=== PATIENT | female | born 1960 | race Caucasian/White ===

== ENCOUNTER 2021-06-30 08:51 | Observation (INO) ==
--- NOTE | 2021-06-30 09:09 | Emergency Department Note ---
Impression & Plan Elevated troponin, Fall, Hyponatremia, Hypokalemia, Thoracic compression fracture ED Provider Note NAME: LUCÍA WASSERMAN AGE: 61 SEX: F : 1960 ARRIVES VIA: Walk-In INFORMANT: Patient, ED PROVIDER(S): Vadim Nieves MD Chief Complaint: Shortness of breath, back pain HPI: Patient does present with above symptoms and states that this began last evening. The patient describes that she had some shortness of breath with back pain that is localized between the shoulder blades. The patient states that th is feels very similar to the time that she had pneumonia 10 years ago and relates this occurred around the time just returned and was fired. Patient denies any fevers or chills. The patient states that it is somewhat positional and worse with breathing. Patient denies any recent trauma or falls. Patient did take some aspirin but without significant relief. Patient denies alcohol tobacco or drug use. Patient is vaccinated for COVID-19 but has not received a seasonal flu shot. Patient denies any cough or abdominal pain. Patient does not have any anterior chest pain. Patient denies any lower extremity swelling, history of DVT or PE, no recent surgeries or procedures or hospitalizations. Patient denies any recent travel or known sick contacts. ROS: See HPI for pertinent positives and negatives. A total of 10 systems were reviewed and otherwise negative. Past medical history: See below Surgical history: See below Social history: See below Physical Exam: GENERAL: Mildly ill in appearance, wearing glasses, wearing a mask, non-toxic. EYE EXAM: Normal conjunctiva. PERRL, no anisocoria and EOM's grossly intact w/o pain. Head: Small contusion to right forehead. NECK: Supple, no nuchal rigidity, no adenopathy, non-tender. No signs of meningismus. LUNGS: Clear to auscultation. Normal chest wall mechanics. HEART: NSR, no MRG. ABDOMEN: Abdomen soft, non-tender, normo-active bowel sounds, no masses, no rebound or guarding. BACK: No CVA TTP. No reproducible upper back pain SKIN: No rashes and no bruising. UPPER EXTREMITIES: Upper extremities are grossly normal. LOWER EXTREMITIES: Grossly normal, no edema. NEURO EXAM: A&O x3, cranial nerves II-XII grossly intact, normal speech, moves all 4 extremities on command w/o issue. No sensory deficits. Differential diagnoses: Reactive airway disease, pneumonia, pneumothorax, COPD, CHF, infections, cardiac ischemia, pulmonary embolism, musculoskeletal, gastrointestinal, as well as other pathologies. Course: Patient was seen and evaluated the bedside. Full history physical exam was performed. EKG interpreted by me Normal sinus rhythm, rate of 76, normal intervals, normal axis, T WI in lead III not in contiguous leads. Trace depression in the lateral leads but not high lateral leads. T wave inversion and slight depression does appear old from comparison EKG November 25, 2009. Imaging Studies: See Below Cardiac monitoring: An order was placed for continuous cardiac monitoring. The monitor shows a rate of 82 with sinus rhythm. MDM: Patient did present due to concern for upper back pain. Blood work was obtained along with a CT angiography of the chest. Patient's blood work showed hyponatremia. I did receive a call the patient's positive troponin. Patient's EKG does show T wave inversion in lead III but not in contiguous leads. Patient does not have any obvious ST elevations. Patient may have very mild depressions in the lateral leads. Patient's EKG does not appear grossly changed from EKG completed in 2009. Patient CT angiography shows a concern for compression fractures. I had asked the patient initially if she had had any recent falls but denied this. I did discuss with the patient that she seemed to have a small contusion to the right forehead but she thought that this was a pimple. CT of the head and cervical spine were ordered to rule out additional possible trauma. These were negative. I did speak the on-call hospitalist Lorrie Case PA-C and the patient was admitted to by Dr. Noriega. Past Med/Surg History Medical History (Updated 06/30/21 @ 14:38 by Vadim Nieves MD) Essential hypertension Hyperlipidemia Psoriasis Psoriatic arthritis Surgical History (Updated 06/30/21 @ 13:12 by Chelsea Case PA-C) History of benign breast biopsy History of cervical biopsy Cervical conization in 1982 for dysplasia - normal pap smears since History of tonsillectomy Social History Smoking Status: Never smoker Feels Safe at Home: Yes Allergies Allergies Allergy/AdvReac Type Severity Reaction Status Date / Time doxycycline Allergy Intermediate Rash Unverified 06/30/21 11:00 Home Meds Home Medications Medication Instructions Recorded Confirmed apremilast 30 mg tablet (Otezla) 30 mg PO BID 06/30/21 06/30/21 atorvastatin 10 mg tablet 10 mg PO QAM 06/30/21 06/30/21 hydrochlorothiazide 25 mg tablet 25 mg PO QAM 06/30/21 06/30/21 lisinopril 30 mg tablet 30 mg PO QAM 06/30/21 06/30/21 propranolol 40 mg tablet 20 mg PO BID PRN 06/30/21 06/30/21 Results & Data (ED) Vital Signs Vital Signs - 24 hr 06/30/21 08:55 06/30/21 09:40 Temperature 36.5 C Temperature Source Temporal Artery Scan Pulse Rate 90 74 Pulse Rate [Apical] 68 Pulse Rhythm Regular Pulse Rhythm [Apical] Regular Pulse Strength [Apical] Normal Respiratory Rate 20 20 Respiratory Effort / Characteristics Non-Labored Non-Labored Spontaneous Respiratory Depth Normal Normal Respiratory Pattern Regular Regular Blood Pressure 165/86 H Blood Pressure [Right Arm] 142/85 H Blood Pressure Mean 112 Blood Pressure Mean [Right Arm] 104 Blood Pressure Position Sitting Blood Pressure Position [Right Arm] Semi-fowlers Pulse Oximetry 99 98 Oxygen Delivery Method Room Air Room Air Sepsis Recent Fever Within 48 Hours No Sepsis New/Unexplained Change in Mental Status No Sepsis Action Taken by Nursing No Action Required Home Medications Current Medication List: was personally reviewed by me Laboratory Data Attestation: I reviewed the patient's lab results. Result diagrams: 06/30/21 09:39 06/30/21 09:39 Lab Results 06/30/21 06/30/21 06/30/21 Range/Units 09:21 09:25 09:39 WBC 7.04 (4.8-10.8) K/uL RBC 4.40 (4.2-5.4) M/uL Hgb 14.8 (12.0-16.0) g/dL POC Hgb (12.0-16.0) g/dl Hct 41.1 (37-47) % POC Hct (37-47) % MCV 93.4 (80-100) fL MCH 33.6 (25-34) pg MCHC 36.0 (32-36) g/dL RDW Std Deviation 44.7 (36.4-46.3) fL RDW Coeff of Bernie 13.0 (11.5-14.5) % Plt Count 220 (130-400) K/uL MPV 8.7 (7.4-10.4) fL Immature Gran % (Auto) 0.1 % Neut % (Auto) 85.4 % Lymph % (Auto) 4.8 % Har[place] % (Auto) 9.5 % Eos % (Auto) 0.1 % Baso % (Auto) 0.1 % Neut # (Auto) 6.00 (1.4-6.5) K/uL Lymph # (Auto) 0.34 L (1.2-3.4) K/uL Har[place] # (Auto) 0.67 H (0.11-0.59) K/uL Eos # (Auto) 0.01 (0-0.5) K/uL Baso # (Auto) 0.01 (0-0.2) K/uL Immature Gran # (Auto) 0.01 (0.00-0.02) K/uL POC Sodium (135-144) mmol/L Sodium (136-145) mmol/L POC Potassium (3.3-5.0) mmol/L Potassium (3.5-5.1) mmol/L POC Chloride (101-112) mmol/L Chloride (98-107) mmol/L Carbon Dioxide (21-32) mmol/L POC Total CO2 (24-31) mmol/L Anion Gap (3-11) POC Anion Gap (16-25) mmol/L POC BUN (7-18) mg/dl BUN (7-18) mg/dl Creatinine (0.6-1.2) mg/dl POC Creatinine (0.6-1.3) mg/dl Est Cr Clr Drug Dosing ml/min Est GFR ( Amer) ml/min Est GFR (Non-Af Amer) ml/min BUN/Creatinine Ratio (10-20) Glucose (70-99) mg/dl POC Glucose (other) (70-99) mg/dl Calcium (8.5-10.1) mg/dl POC Ioniz Calcium Anjum (1.12-1.32) mmol/l Total Bilirubin (0.2-1) mg/dl AST (15-37) U/L ALT (12-78) U/L Alkaline Phosphatase (45-117) U/L Troponin I (0-0.045) ng/ml Total Protein (6.4-8.2) gm/dl Albumin (3.4-5.0) gm/dl Globulin (2.5-4.0) gm/dl Albumin/Globulin Ratio (0.9-2) Influ A Molecular Assay Negative (Negative) Influ B Molecular Assay Negative (Negative) SARS-CoV-2, RNA, NAAT NEGATIVE (NEGATIVE) 06/30/21 06/30/21 Range/Units 09:39 09:48 WBC (4.8-10.8) K/uL RBC (4.2-5.4) M/uL Hgb (12.0-16.0) g/dL POC Hgb 15.6 (12.0-16.0) g/dl Hct (37-47) % POC Hct 46 (37-47) % MCV (80-100) fL MCH (25-34) pg MCHC (32-36) g/dL RDW Std Deviation (36.4-46.3) fL RDW Coeff of Bernie (11.5-14.5) % Plt Count (130-400) K/uL MPV (7.4-10.4) fL Immature Gran % (Auto) % Neut % (Auto) % Lymph % (Auto) % [place] % (Auto) % Eos % (Auto) % Baso % (Auto) % Neut # (Auto) (1.4-6.5) K/uL Lymph # (Auto) (1.2-3.4) K/uL [place] # (Auto) (0.11-0.59) K/uL Eos # (Auto) (0-0.5) K/uL Baso # (Auto) (0-0.2) K/uL Immature Gran # (Auto) (0.00-0.02) K/uL POC Sodium 128 L (135-144) mmol/L Sodium 127 L (136-145) mmol/L POC Potassium 3.1 L (3.3-5.0) mmol/L Potassium 3.0 L (3.5-5.1) mmol/L POC Chloride 91 L (101-112) mmol/L Chloride 92 L (98-107) mmol/L Carbon Dioxide 22 (21-32) mmol/L POC Total CO2 23 L (24-31) mmol/L Anion Gap 13.0 H (3-11) POC Anion Gap 19.0 (16-25) mmol/L POC BUN 10 (7-18) mg/dl BUN 10 (7-18) mg/dl Creatinine 0.79 (0.6-1.2) mg/dl POC Creatinine 0.7 (0.6-1.3) mg/dl Est Cr Clr Drug Dosing 84.3 ml/min Est GFR ( Amer) 93.6 ml/min Est GFR (Non-Af Amer) 80.8 ml/min BUN/Creatinine Ratio 12.8 (10-20) Glucose 130 H (70-99) mg/dl POC Glucose (other) 130 H (70-99) mg/dl Calcium 9.5 (8.5-10.1) mg/dl POC Ioniz Calcium Anjum 1.14 (1.12-1.32) mmol/l Total Bilirubin 1.7 H (0.2-1) mg/dl AST 40 H (15-37) U/L ALT 35 (12-78) U/L Alkaline Phosphatase 87 (45-117) U/L Troponin I 0.239 H* (0-0.045) ng/ml Total Protein 7.9 (6.4-8.2) gm/dl Albumin 4.2 (3.4-5.0) gm/dl Globulin 3.7 (2.5-4.0) gm/dl Albumin/Globulin Ratio 1.1 (0.9-2) Influ A Molecular Assay (Negative) Influ B Molecular Assay (Negative) SARS-CoV-2, RNA, NAAT (NEGATIVE) Administered Medications Discontinued Medications Sodium Chloride (Nss 1000ml) 1,000 mls @ 999 mls/hr IV .Q1H1M ANU Stop: 06/30/21 10:15 Last Infusion: 06/30/21 11:07 Dose: 999 mls/hr Documented by: [id number] Admin: 06/30/21 09:50 Dose: 999 mls/hr Documented by: [id number] Ioversol (Optiray 320 125ml) 120 ml IV ONCE ONE Stop: 06/30/21 10:15 Last Admin: 06/30/21 10:14 Dose: 120 ml Documented by: [id number] Morphine Sulfate (Morphine Sulfate 2 Mg/Ml Carp) 2 mg IV NOW STA Stop: 06/30/21 09:15 Last Admin: 06/30/21 09:50 Dose: 2 mg Documented by: [id number] Ondansetron HCl (Ondansetron Inj 2 Mg/Ml 2 Ml Vial) 4 mg IV NOW STA Stop: 06/30/21 09:15 Last Admin: 06/30/21 09:46 Dose: 4 mg Documented by: [id number] Imaging Data Radiologist's Impression: Chest CTA 06/30/21 09:14 CT ANGIOGRAM OF THE CHEST CLINICAL HISTORY: Dyspnea. Atypical chest pain. COMPARISON STUDY: Chest CT dated 06/07/2011. Chest x-ray dated 11/25/2009. TECHNIQUE: Following the IV administration of 120 cc of Optiray 320, CT angiogram of the chest was performed from the upper abdomen to the thoracic inlet utilizing the pulmonary embolus protocol. Images are reviewed in the axial, sagittal, and coronal planes. 3-D MIPS images are created and assessed. IV contrast was administered without complication. A dose lowering technique was utilized adhering to the principles of ALARA. There is streak artifact from the patient's neck was. CT DOSE: 333.72 mGy.cm FINDINGS: Thyroid: Imaged portions of the thyroid gland are normal in size and attenuation. Thoracic aorta: The thoracic aorta is normal in caliber and demonstrates standard 3-vessel arch anatomy. No dissection is seen. Pulmonary vasculature: The pulmonary trunk is normal in caliber. There are no filling defects identified in main, lobar, or segmental pulmonary branches to suggest pulmonary embolus. Heart: The heart is mildly enlarged and without pericardial effusion. Lungs and pleural spaces: Airspace opacities at the left lung base likely represent subsegmental atelectasis. Subsegmental atelectasis is noted at the right lung base. No pleural effusion or pneumothorax is identified. The trachea and central airways are clear. Mediastinum: There is no mediastinal lymphadenopathy. Marcia: Clear. Axillae: There is no axillary lymphadenopathy. Upper abdomen: Partially visualized upper abdominal viscera is within normal limits. Skeletal structures: The skeletal structures are osteopenic. There are mild and age indeterminant superior endplate compression fractures of T3, T4, T5, and T9. Several of these appear acute to subacute. No lytic or blastic bony lesions are seen. IMPRESSION: 1. There is no evidence of pulmonary embolus in the main, lobar, or segmental pulmonary arteries. 2. There are age indeterminant superior endplate compression fracture of T3, T4, T5, and T9. These are age indeterminant and appear acute to subacute. Correlate for point tenderness. 3. Airspace opacities at the left lung base likely represent segmental atelectasis. Correlate clinically for evidence of a superimposed infectious/inflammatory pneumonitis. 4. Mild cardiomegaly. 5. Additional findings as above. ACT 112: Negative or not required by law. Electronically signed by: Terell Ventura M.D. 06/30/2021 10:[address] 06/30/21 11:24 CT OF THE CERVICAL SPINE WITHOUT CONTRAST CLINICAL HISTORY: ?fall, thoracic back frx's COMPARISON STUDY: No previous studies for comparison. TECHNIQUE: Helical axial images of the cervical spine were obtained without IV contrast. Sagittal and coronal reconstructions were viewed. Automated exposure control was utilized for the study. A dose lowering technique was utilized adhering to the principles of ALARA. FINDINGS: There is straightening of the normal cervical lordosis. Vertebral body heights are maintained. No acute cervical spine fracture or subluxation is present. There is no prevertebral edema. Facet joints are intact. Moderate multilevel degenerative changes within the cervical spine are present. IMPRESSION: No acute cervical spine fracture or subluxation. ACT 112: Negative or not required by law. Electronically signed by: Vincenzo Ferrer M.D. 06/30/2021 11:[address] 06/30/21 11:24 CT head/brain wo con CLINICAL HISTORY: R forehead contusion COMPARISON STUDY: No previous studies for comparison. TECHNIQUE: Standard CT of the Brain was performed without IV contrast. A dose lowering technique was utilized adhering to the principles of ALARA. FINDINGS: Extraaxial space: There is no evidence for subdural hematoma. There are no extra-axial fluid collections. Ventricles and cisterns: The ventricles are normal in size and configuration. There is no evidence for midline shift or mass effect. Parenchyma: There is no subarachnoid or intraparenchymal hemorrhage. There is no evidence for an acute infarct or cerebral edema. There is homogeneous attenuation of the brain parenchyma. There are no gross mass lesions. Osseous structures: There is no evidence for an acute fracture. The visualized paranasal sinuses are clear. The mastoid air cells are clear bilaterally. Soft tissues: There is a small subgaleal hematoma adjacent to the right forehead. IMPRESSION: No acute intracerebral pathology. Small subgaleal hematoma adjacent to the right forehead. ACT 112: Negative or not required by law. Electronically signed by: Ryan Dasilva M.D. 06/30/2021 11:56 AM Discharge Plan Visit Data Chief Complaint: Respiratory Problems Stated Complaint: HARD TO BREATHE/PAIN IN BACK ED Provider: Vadim Nieves Discharge Problem: Elevated troponin, Fall, Hyponatremia, Hypokalemia, Thoracic compression fracture Patient Disposition: Admitted As Inpatient
[2021-06-30] MEDS ORDERED: MoRPHine SULFATE 2 MG/ML CARP IV STA (09:14)
[2021-06-30] MEDS ORDERED: ONDANSETRON INJ 2 MG/ML 2 ML VIAL IV STA (09:14)
[2021-06-30] MEDS ORDERED: SODIUM CHLORIDE 0.9% 1000ML 1,000 ML IV SCH (09:15)
[2021-06-30 09:53] LABS: Basophils # (auto) 0.01 K/uL (0-0.2); Basophils % (auto) 0.1 %; Eosinophils # (auto) 0.01 K/uL (0-0.5); Eosinophils % (auto) 0.1 %; Hematocrit (blood only) 41.1 % (37-47); Hemoglobin 14.8 g/dL (12.0-16.0); Immature Granulocytes # (auto) 0.01 K/uL (0.00-0.02); Immature Granulocytes % (auto) 0.1 %; Lymphocytes # (auto) 0.34 K/uL (1.2-3.4); Lymphocytes % (auto) 4.8 %; Mean Corpuscular Hemoglobin 33.6 pg (25-34); Mean Corpuscular Volume 93.4 fL (80-100); Mean Platelet Volume 8.7 fL (7.4-10.4); Monocytes # (auto) 0.67 K/uL (0.11-0.59); Monocytes % (auto) 9.5 %; Neutrophils % (auto) 85.4 %; Platelet Count 220 K/uL (130-400); RDW Standard Deviation 44.7 fL (36.4-46.3); White Blood Count 7.04 K/uL (4.8-10.8)
[2021-06-30 10:02] LABS: iSTAT Creatinine 0.7 mg/dl (0.6-1.3); iSTAT Hemoglobin 15.6 g/dl (12.0-16.0); iSTAT Ionized Calcium 1.14 mmol/l (1.12-1.32); iSTAT Potassium 3.1 mmol/L (3.3-5.0)
[2021-06-30 10:11] LABS: Albumin Level 4.2 gm/dl (3.4-5.0); BUN Creatinine Ratio 12.8 (10-20); Calcium 9.5 mg/dl (8.5-10.1); Creatinine Clr Calc Pharmacy 84.3 ml/min; Est GFR (African American) 93.6 ml/min; Est GFR (Non-African American) 80.8 ml/min
[2021-06-30] MEDS ORDERED: OPTIRAY 320 125ml IV ONE (10:14)
[2021-06-30 10:18] LABS: Albumin Globulin Ratio 1.1 (0.9-2); Bilirubin,Total 1.7 mg/dl (0.2-1); Globulin 3.7 gm/dl (2.5-4.0); Total Protein 7.9 gm/dl (6.4-8.2); Troponin I 0.239 ng/ml (0-0.045)
[2021-06-30 10:19] LABS: Influenza A virus by PCR Negative (Negative); Influenza B virus by PCR Negative (Negative)
--- NOTE | 2021-06-30 10:36 | CT Scan Report ---
CT ANGIOGRAM OF THE CHEST CLINICAL HISTORY: Dyspnea. Atypical chest pain. COMPARISON STUDY: Chest CT dated 06/07/2011. Chest x-ray dated 11/25/2009. TECHNIQUE: Following the IV administration of 120 cc of Optiray 320, CT angiogram of the chest was pe rformed from the upper abdomen to the thoracic inlet utilizing the pulmonary embolus protocol. Images are reviewed in the axial, sagittal, and coronal planes. 3-D MIPS images are created and assessed. I V contrast was administered without complication. A dose lowering technique was utilized adhering to the principles of ALARA. There is streak artifact from the patient's neck was. CT DOSE: 333.72 mGy.cm FINDINGS: Thyroid: Imaged portions of the thyroid gland are normal in size and attenuation. Thoracic aorta: The thoracic aorta is normal in caliber and demonstrates standard 3-vessel arch anato my. No dissection is seen. Pulmonary vasculature: The pulmonary trunk is normal in caliber. There are no filling defects identif ied in main, lobar, or segmental pulmonary branches to suggest pulmonary embolus. Heart: The heart is mildly enlarged and without pericardial effusion. Lungs and pleural spaces: Airspace opacities at the left lung base likely represent subsegmental atel ectasis. Subsegmental atelectasis is noted at the right lung base. No pleural effusion or pneumothora x is identified. The trachea and central airways are clear. Mediastinum: There is no mediastinal lymphadenopathy. Marcia: Clear. Axillae: There is no axillary lymphadenopathy. Upper abdomen: Partially visualized upper abdominal viscera is within normal limits. Skeletal structures: The skeletal structures are osteopenic. There are mild and age indeterminant sup erior endplate compression fractures of T3, T4, T5, and T9. Several of these appear acute to subacute . No lytic or blastic bony lesions are seen. IMPRESSION: 1. There is no evidence of pulmonary embolus in the main, lobar, or segmental pulmonary arteries. 2. There are age indeterminant superior endplate compression fracture of T3, T4, T5, and T9. These ar e age indeterminant and appear acute to subacute. Correlate for point tenderness. 3. Airspace opacities at the left lung base likely represent segmental atelectasis. Correlate clinica lly for evidence of a superimposed infectious/inflammatory pneumonitis. 4. Mild cardiomegaly. 5. Additional findings as above. ACT 112: Negative or not required by law. Electronically signed by: Terell Ventura M.D. 06/30/2021 10:35 AM
--- NOTE | 2021-06-30 11:51 | CT Scan Report ---
CT OF THE CERVICAL SPINE WITHOUT CONTRAST CLINICAL HISTORY: ?fall, thoracic back frx's COMPARISON STUDY: No previous studies for comparison. TECHNIQUE: Helical axial images of the cervical spine were obtained without IV contrast. Sagittal a nd coronal reconstructions were viewed. Automated exposure control was utilized for the study. A do se lowering technique was utilized adhering to the principles of ALARA. FINDINGS: There is straightening of the normal cervical lordosis. Vertebral body heights are maintain ed. No acute cervical spine fracture or subluxation is present. There is no prevertebral edema. Facet joints are intact. Moderate multilevel degenerative changes within the cervical spine are present. IMPRESSION: No acute cervical spine fracture or subluxation. ACT 112: Negative or not required by law. Electronically signed by: Vincenzo Ferrer M.D. 06/30/2021 11:50 AM
--- NOTE | 2021-06-30 11:57 | CT Scan Report ---
CT head/brain wo con CLINICAL HISTORY: R forehead contusion COMPARISON STUDY: No previous studies for comparison. TECHNIQUE: Standard CT of the Brain was performed without IV contrast. A dose lowering technique was utilized adhering to the principles of ALARA. FINDINGS: Extraaxial space: There is no evidence for subdural hematoma. There are no extra-axial fluid collecti ons. Ventricles and cisterns: The ventricles are normal in size and configuration. There is no evidence f or midline shift or mass effect. Parenchyma: There is no subarachnoid or intraparenchymal hemorrhage. There is no evidence for an acu te infarct or cerebral edema. There is homogeneous attenuation of the brain parenchyma. There are no gross mass lesions. Osseous structures: There is no evidence for an acute fracture. The visualized paranasal sinuses are clear. The mastoid air cells are clear bilaterally. Soft tissues: There is a small subgaleal hematoma adjacent to the right forehead. IMPRESSION: No acute intracerebral pathology. Small subgaleal hematoma adjacent to the right forehead . ACT 112: Negative or not required by law. Electronically signed by: Ryan Dasilva M.D. 06/30/2021 11:56 AM
--- NOTE | 2021-06-30 12:38 | History & Physical Report ---
Date of Service June 30, 2021 Assessment & Plan (1) Elevated troponin: Plan: It appears that pt had a fall of some sort last night but cannot recall the events - consider seizure, syncope, cardiac arrhythmia in work-up. Noted to have an elevated troponin in the ED with nonspecific EKG findings that appeared unchanged from prior EKG. Imaging with acute to subacute thoracic compression fractures, which may be the course of pt's ongoing pain. - Admit to PCU for monitoring - Trend troponin, repeat EKG now and in the AM - Check ECHO - Cardiology consult for additional recommendations - Check additional labs - CK, TSH (2) Thoracic compression fracture: Plan: - Pain control - Consult ortho spine (3) Fall: Plan: See plan for #1 - Will consult neurology due to unclear events last night - pt with remote hx of seizure but no known seizure disorder. May need additional neuro work-up pending cardiac w/u. (4) Hyponatremia: Plan: May be due to HCTZ. Pt reports that she drinks ~200 oz of water most days - has not recently been drinking excessive amounts. Denies prior hx of low sodium. - IVF started in ED - will continue - BMP Q6 hrs until labs improving - Check serum osmolality, urine osmolality, urine sodium - HOLD HCTZ for now (5) Hypokalemia: Plan: - Replete in IV and with oral x 2 dose - Check magnesium - Follow labs (6) Hyperlipidemia: Plan: - Continue statin (7) Essential hypertension: Plan: - HOLD HCTZ due to hyponatremia - Continue Lisinopil and monitor (8) Psoriatic arthritis: Plan: - Continue Otezla (9) Psoriasis: Plan: Pt seen and reviewed with attending physician, Dr. Noriega. Plan of care discussed and as outlined above. Code Status: Full code DVT Prophylaxis: SCDmyranda Case PA-C History of Present Illness Chief Complaint: Back Pain Primary Care Provider: Dr. Elana Mcnair This is a 61 y/o female with a PMH of psoriasis with associated psoriatic arthritis, HTN, and hyperlipidemia who presents to the ED today after waking up at 2 am this morning with sharp thoracic back pain. Pt reports that yesterday she felt mildly dizzy but this is not unusual for her so she didn't think much of it. Went to bed last night feeling at baseline. Woke up around 2 am today with sharp severe pain between her shoulder blades. Does not radiate to chest, neck, or head. She came to the ED for evaluation as pain felt similar to when she had pneumonia 10 years ago although she denies fevers, chills, cough. It does feel like it's hard to take a deep breath and deep breathing makes the pain worse. She denies chest pain or heaviness, palpitations, wheezing. She does not have any recollection of anything happening between when she went to bed and when she woke up at 2 am, but she has a new bruise/cut on her right forehead and imaging in the ED shows acute to subacute thoracic compression fractures. She does have a hx of COVID about a year ago and has since struggled with long COVID symptoms, specifically fatigue/lack of stamina and brain fog. Before COVID, she was able to walk 4 miles per day but currently she can only make it 20 minutes of walking before she has to rest. The inactivity has resulted in weight gain. She was also vaccinated for COVID with [place] x 3 doses. She denies prior history of back issues. Remote hx of single seizure 15-16 years ago - none since. No specific cause identified. Currently feels shaky all over but denies dizzines. Allergies Allergy/AdvReac Type Severity Reaction Status Date / Time doxycycline Allergy Intermediate Rash Unverified 06/30/21 11:00 Home Medications Medication Instructions Recorded Confirmed Type apremilast 30 mg tablet (Otezla) 30 mg PO BID 06/30/21 06/30/21 History atorvastatin 10 mg tablet 10 mg PO QAM 06/30/21 06/30/21 History hydrochlorothiazide 25 mg tablet 25 mg PO QAM 06/30/21 06/30/21 History lisinopril 30 mg tablet 30 mg PO QAM 06/30/21 06/30/21 History propranolol 40 mg tablet 20 mg PO BID PRN 06/30/21 06/30/21 History Past Med/Surg History Medical History Essential hypertension Hyperlipidemia Psoriasis Psoriatic arthritis Surgical History History of benign breast biopsy History of cervical biopsy Cervical conization in 1982 for dysplasia - normal pap smears since History of tonsillectomy Social History Smoking Status: Never smoker Hx Alcohol Use: Yes Preferred Language: Lao Communication Ability: Effective Levi Maker Required: No Beliefs That Will Affect Care: None Current Living Situation: Alone How many Children do You have: 2 Feels Safe at Home: Yes Safety Concerns: Feels Safe At This Time Assistive Devices: None Review of Systems Review of Systems: All systems reviewed & are unremarkable except as noted in HPI & below Constitutional: no fever, no chills and no sweats Eyes: no diplopia Ear, Nose, Mouth, Throat: no nasal congestion, no sinus pain/pressure and no sore throat Respiratory: as per Subjective / HPI and + pain on inspiration; no cough and no dyspnea Cardiovascular: + lightheadedness; no chest pain, no palpitations and no edema Gastrointestinal: no abdominal pain, no nausea, no vomiting and no diarrhea/loose stools Genitourinary: no dysuria, no urinary frequency and no hematuria Musculoskeletal: + back pain; no neck pain Integumentary: + wounds (new bruise and small cut on forehead since yesterday); no yellowing of the skin Neurologic: + falls (potential fall last night but pt does not recall) Physical Exam Constitutional: well developed and well nourished; no acute distress Eyes: + anicteric sclerae Neck: trachea midline Respiratory: no respiratory distress and no labored breathing Auscultation: lungs clear to auscultation bilaterally; no rales, no rhonchi and no wheezes Cardiovascular: Rate/Rhythm: regular rate and regular rhythm Heart Sounds: no gallop, no murmur and no cardiac rub Vessels: dorsalis pedis pulses present and radial pulses present Extremities: normal capillary refill; no pedal edema Gastrointestinal (Abdomen): Inspection/Auscultation: normal bowel sounds; abdomen not distended Percussion/Palpation: abdomen soft; abdomen nontender Musculoskeletal: Spine: thoracic spine normal to inspection and + thoracic spinal tenderness (mid-thoracic spine with mild tenderness); no cervical spinal tenderness Skin: right forehead with area of ecchymosis and small superficial laceration Neurologic: moves all extremities; no focal motor deficits Speech / Cognition: normal speech Cranial Nerves: tongue midline Psychiatric: Orientation: oriented x 3 Affect: + anxious affect Insight: good insight Results & Data Results & Data ([facility]) Vital Signs (Past 12 Hours) Vital Signs Temp Pulse Pulse Resp BP BP Pulse Ox 06/30/21 09:40 74 68 20 142/85 H 98 06/30/21 08:55 36.5 C 90 20 165/86 H 99 Laboratory Results Laboratory Results - last 24 hr 06/30/21 06/30/21 06/30/21 09:21 09:25 09:39 WBC 7.04 RBC 4.40 Hgb 14.8 POC Hgb Hct 41.1 POC Hct MCV 93.4 MCH 33.6 MCHC 36.0 RDW Std Deviation 44.7 RDW Coeff of Bernie 13.0 Plt Count 220 MPV 8.7 Immature Gran % (Auto) 0.1 Neut % (Auto) 85.4 Lymph % (Auto) 4.8 Mckean % (Auto) 9.5 Eos % (Auto) 0.1 Baso % (Auto) 0.1 Neut # (Auto) 6.00 Lymph # (Auto) 0.34 L Mckean # (Auto) 0.67 H Eos # (Auto) 0.01 Baso # (Auto) 0.01 Immature Gran # (Auto) 0.01 POC Sodium Sodium POC Potassium Potassium POC Chloride Chloride Carbon Dioxide POC Total CO2 Anion Gap POC Anion Gap POC BUN BUN Creatinine POC Creatinine Est Cr Clr Drug Dosing Est GFR ( Amer) Est GFR (Non-Af Amer) BUN/Creatinine Ratio Glucose POC Glucose (other) Calcium POC Ioniz Calcium Anjum Total Bilirubin AST ALT Alkaline Phosphatase Troponin I Total Protein Albumin Globulin Albumin/Globulin Ratio Influ A Molecular Assay Negative Influ B Molecular Assay Negative SARS-CoV-2, RNA, NAAT NEGATIVE 06/30/21 06/30/21 09:39 09:48 WBC RBC Hgb POC Hgb 15.6 Hct POC Hct 46 MCV MCH MCHC RDW Std Deviation RDW Coeff of Bernie Plt Count MPV Immature Gran % (Auto) Neut % (Auto) Lymph % (Auto) Mckean % (Auto) Eos % (Auto) Baso % (Auto) Neut # (Auto) Lymph # (Auto) Mckean # (Auto) Eos # (Auto) Baso # (Auto) Immature Gran # (Auto) POC Sodium 128 L Sodium 127 L POC Potassium 3.1 L Potassium 3.0 L POC Chloride 91 L Chloride 92 L Carbon Dioxide 22 POC Total CO2 23 L Anion Gap 13.0 H POC Anion Gap 19.0 POC BUN 10 BUN 10 Creatinine 0.79 POC Creatinine 0.7 Est Cr Clr Drug Dosing 84.3 Est GFR ( Amer) 93.6 Est GFR (Non-Af Amer) 80.8 BUN/Creatinine Ratio 12.8 Glucose 130 H POC Glucose (other) 130 H Calcium 9.5 POC Ioniz Calcium Anjum 1.14 Total Bilirubin 1.7 H AST 40 H ALT 35 Alkaline Phosphatase 87 Troponin I 0.239 H* Total Protein 7.9 Albumin 4.2 Globulin 3.7 Albumin/Globulin Ratio 1.1 Influ A Molecular Assay Influ B Molecular Assay SARS-CoV-2, RNA, NAAT Diagnostic Findings CT Head 06/30/21 - IMPRESSION: No acute intracerebral pathology. Small subgaleal hematoma adjacent to the right forehead. Cervical Spine 06/30/21 - IMPRESSION: No acute cervical spine fracture or subluxation. Chest CTA 06/30/21 - IMPRESSION: 1. There is no evidence of pulmonary embolus in the main, lobar, or segmental pulmonary arteries. 2. There are age indeterminant superior endplate compression fracture of T3, T4, T5, and T9. These are age indeterminant and appear acute to subacute. Correlate for point tenderness. 3. Airspace opacities at the left lung base likely represent segmental atelectasis. Correlate clinically for evidence of a superimposed infectious/inflammatory pneumonitis. 4. Mild cardiomegaly. 5. Additional findings as above. Medications Administered Discontinued Medications Sodium Chloride (Nss 1000ml) 1,000 mls @ 999 mls/hr IV .Q1H1M ANU Stop: 06/30/21 10:15 Last Infusion: 06/30/21 11:07 Dose: 999 mls/hr Documented by: [id number] Admin: 06/30/21 09:50 Dose: 999 mls/hr Documented by: [id number] Ioversol (Optiray 320 125ml) 120 ml IV ONCE ONE Stop: 06/30/21 10:15 Last Admin: 06/30/21 10:14 Dose: 120 ml Documented by: [id number] Morphine Sulfate (Morphine Sulfate 2 Mg/Ml Carp) 2 mg IV NOW STA Stop: 06/30/21 09:15 Last Admin: 06/30/21 09:50 Dose: 2 mg Documented by: [id number] Ondansetron HCl (Ondansetron Inj 2 Mg/Ml 2 Ml Vial) 4 mg IV NOW STA Stop: 06/30/21 09:15 Last Admin: 06/30/21 09:46 Dose: 4 mg Documented by: [id number] Code Status & VTE Plan VTE Prophylaxis Plan VTE Prophylaxis will be ordered: Yes Supervising Physician Co-Signing Physician Notes Attending Addendum: delayed entry date of service noted above care coordinated with ELIZABETH Case please refer to her notes for full details, I agree with her notes patient seen and examined, records reviewed by myself as well on exam, patient seen resting in bed, sitting up not in distress reports moderate pain on the shoulder blades area mild pain over the right forehead denies focal neuro symptoms no chest pain, dyspnea, palpitations, dizziness no other symptoms VS noted and reviewed oriented x 3 , not in distress, speaks in sentences with no effort nor accessory muscle use head (+) small hematoma and laceration on the right forehead normal rate, regular rhythm, no murmurs clear breath sounds bilaterally non distended, soft, nontender no bipedal edema, erythema, warmth no neuro deficits WBC 7 Hg [address] head: No acute intracerebral pathology. Small subgaleal hematoma adjacent to the right forehead. ASSESSMENT AND PLAN Back pain secondary to Thoracic Compression Fractures R Forehead hematoma, Laceration -- secondary to Fall from Breakthrough seizure? -- Brain MRI EEG -- Neuro consulted Ortho consulted Mild Troponin elevation -- no chest pain EKG no acute ischemia/infarct -- trend troponins Echo Cardio consulted other diagnoses and plan of care as per ELIZABETH Noriega MD
--- NOTE | 2021-06-30 13:27 | Electrocardiogram Report ---
Test Reason : Blood Pressure : / mmHG Vent. Rate : 076 BPM Atrial Rate : 076 BPM P-R Int : 148 ms QRS Dur : 084 ms QT Int : 398 ms P-R-T Axes : 046 010 020 degrees QTc Int : 447 ms Normal sinus rhythm Possible Left atrial enlargement Nonspecific T wave abnormality Abnormal ECG When compared with ECG of 25-NOV-2009 04:11, No significant change was found Confirmed by Eder Braga ([id number]) on 06/30/2021 1:26:50 PM Referred By: Confirmed By:Valentino Braga
[2021-06-30] MEDS ORDERED: POTASSIUM CHLORIDE CRTAB 20 MEQ TABCR PO STA (13:38)
--- NOTE | 2021-06-30 14:22 | Neurology Consultation ---
Date of Consultation June 30, 2021 Assessment & Plan (1) Fall: 1. may need EEG to r/o seizure and then out patient 72 hour EEG 2. clarify if this was a LOC -traumatic event 3. no driving for 6 months from last seizure date, no heights, no bathing or swimming alone 4. MRI brain with and without contrast r/o stroke lesion 5. fall precautions Supervising Physician Co-Signing Physician Notes Patient was seen and examined in the ED. She is a pleasant 61 year old woman who which reports one prior seizure 15+ years ago presenting with contusion to right eye and loss of time. Patient amnestic to the events and woke up confused and bruised. She was evaluated in the ED and found to have hyponatremia and mildly elevated CK. Troponin was mildly elevated. CT head showed subgaleal hemorrhage. On examine patient has bruise to right eye and appears to have bit her tongue. Amnestic to events but reports going to sleep ok. Woke with back pain. I am concerned the patient may have had a GTC seizure which would account for the amnesia / confusion, tongue abrasion, and mildly elevated CK. Unclear if mild hyponatremia is due to HCTZ. However patient reports having seizure in the past. - Recommend starting Keppra 500 mg BID - Recommend MRI brain w/wo - Recommend routine EEG History of Present Illness Reason for Consultation: syncope vs seizure Requesting Physician: Mack Noriega MD Attending Physician: Mack Noriega MD History of Present Illness Yamileth is a 61 year old female with a PMH -psoriasis with associated psoriatic arthritis, HTN, and HLD who presents to the [facility] ED 06/30/2021 after waking up at 2 am this morning with sharp thoracic back pain.Yesterday she felt mildly dizzy but this is not unusual for her so she didn't think much of it. Went to bed last night feeling at baseline. She came to the ED for evaluation as pain felt similar to when she had pneumonia 10 years ago although she denies fevers, chills, cough. It does feel like it's hard to take a deep breath and deep breathing makes the pain worse. She does not have any recollection of anything happening between when she went to bed and when she woke up at 2 am, but she has a new bruise/cut on her right forehead and imaging in the ED shows acute to subacute thoracic compression fractures. She does have a hx of COVID about a year ago and has since struggled with long COVID symptoms, specifically fatigue/lack of stamina and brain fog. Before COVID, she was able to walk 4 miles per day but currently she can only make it 20 minutes of walking before she has to rest. The inactivity has resulted in weight gain. She was also vaccinated for COVID with Pfizer x 3 doses. Remote hx of single seizure 15-16 years ago - none since. Allergies Allergy/AdvReac Type Severity Reaction Status Date / Time doxycycline Allergy Intermediate Rash Unverified 06/30/21 11:00 Home Medications Medication Instructions Recorded Confirmed Type apremilast 30 mg tablet (Otezla) 30 mg PO BID 06/30/21 06/30/21 History atorvastatin 10 mg tablet 10 mg PO QAM 06/30/21 06/30/21 History hydrochlorothiazide 25 mg tablet 25 mg PO QAM 06/30/21 06/30/21 History lisinopril 30 mg tablet 30 mg PO QAM 06/30/21 06/30/21 History propranolol 40 mg tablet 20 mg PO BID PRN 06/30/21 06/30/21 History Patient History Medical History (Updated 06/30/21 @ 14:38 by Vadim Nieves MD) Essential hypertension Hyperlipidemia Psoriasis Psoriatic arthritis Surgical History (Updated 06/30/21 @ 13:12 by Chelsea Case PA-C) History of benign breast biopsy History of cervical biopsy Cervical conization in 1982 for dysplasia - normal pap smears since History of tonsillectomy Social History Smoking Status: Never smoker Hx Alcohol Use: Yes Preferred Language: Czech Communication Ability: Effective Stull Hewer Required: No Beliefs That Will Affect Care: None Current Living Situation: Alone Feels Safe at Home: Yes Safety Concerns: Feels Safe At This Time Results & Data ([facility]) Vital Signs (Past 12 Hours) Vital Signs Temp Pulse Pulse Resp BP BP Pulse Ox 06/30/21 09:40 74 68 20 142/85 H 98 06/30/21 08:55 36.5 C 90 20 165/86 H 99 Laboratory Results Abnormal lab results 06/30/21 06/30/21 06/30/21 Range/Units 09:39 09:39 09:48 Lymph # (Auto) 0.34 L (1.2-3.4) K/uL Otoe # (Auto) 0.67 H (0.11-0.59) K/uL POC Sodium 128 L (135-144) mmol/L Sodium 127 L (136-145) mmol/L POC Potassium 3.1 L (3.3-5.0) mmol/L Potassium 3.0 L (3.5-5.1) mmol/L POC Chloride 91 L (101-112) mmol/L Chloride 92 L (98-107) mmol/L POC Total CO2 23 L (24-31) mmol/L Anion Gap 13.0 H (3-11) Glucose 130 H (70-99) mg/dl POC Glucose (other) 130 H (70-99) mg/dl Total Bilirubin 1.7 H (0.2-1) mg/dl AST 40 H (15-37) U/L Troponin I 0.239 H* (0-0.045) ng/ml Diagnostic Findings CTA chest- There is no evidence of pulmonary embolus in the main, lobar, or segmental pulmonary arteries. There are age indeterminant superior endplate compression fracture of T3, T4, T5, and T9. These are age indeterminant and appear acute to subacute. Correlate for point tenderness. Airspace opacities at the left lung base likely represent segmental atelectasis. Correlate clinically for evidence of a superimposed infectious/inflammatory pneumonitis. Mild cardiomegaly. CT c spine-No acute cervical spine fracture or subluxation. CT head-No acute intracerebral pathology. Small subgaleal hematoma adjacent to the right forehead.
[2021-06-30 14:57] LABS: BUN Creatinine Ratio 10.2 (10-20); Calcium 9.4 mg/dl (8.5-10.1); Creatinine Clr Calc Pharmacy 86.5 ml/min; Est GFR (African American) 96.6 ml/min; Est GFR (Non-African American) 83.3 ml/min; Magnesium 2.2 mg/dl (1.8-2.4); Potassium 3.1 mmol/L (3.5-5.1)
[2021-06-30 15:05] LABS: Thyroid Stimulating Hormone 0.827 uIu/ml (0.300-4.500)
[2021-06-30] MEDS: NSS + 20MEQ KCL 20 MEQ/1,000 ML BAG IV SCH (15:06)
[2021-06-30 15:20] LABS: Troponin I 0.191 ng/ml (0-0.045)
[2021-06-30 20:24] LABS: BUN Creatinine Ratio 8.7 (10-20); Calcium 9.2 mg/dl (8.5-10.1); Creatinine Clr Calc Pharmacy 87.6 ml/min; Est GFR (African American) 98.1 ml/min; Est GFR (Non-African American) 84.7 ml/min; Potassium 3.6 mmol/L (3.5-5.1)
[2021-06-30 20:38] LABS: Troponin I 0.099 ng/ml (0-0.045)
[2021-06-30] MEDS ORDERED: ACETAMINOPHEN 325 MG TAB PO PRN (20:44)
[2021-06-30] MEDS ORDERED: MoRPHine SULFATE 4 MG/ML 1 ML CARP\\VIAL IV PRN (20:44)
[2021-06-30] MEDS ORDERED: FLUARIX QUADRIVALENT 0.5 ML SYR IM ONE (21:05)
[2021-06-30] MEDS: APREMILAST PO SCH (21:50)
[2021-07-01] MEDS: NSS + 20MEQ KCL 20 MEQ/1,000 ML BAG IV SCH ×3 (01:52→10:56)
[2021-07-01 02:35] LABS: BUN Creatinine Ratio 8.7 (10-20); Calcium 9.1 mg/dl (8.5-10.1); Est GFR (African American) 93.6 ml/min; Est GFR (Non-African American) 80.8 ml/min; Potassium 3.9 mmol/L (3.5-5.1)
[2021-07-01] MEDS: lisinopril 10 MG TAB PO SCH (08:00)
[2021-07-01] MEDS: ATORVASTATIN 10 MG TAB PO SCH (08:00)
[2021-07-01] MEDS: APREMILAST PO SCH ×2 (08:01→20:36)
--- NOTE | 2021-07-01 09:55 | Cardiology Consultation ---
Date of Consultation July 01, 2021 Assessment & Plan (1) Hypokalemia: (2) Hyponatremia: (3) Elevated troponin: (4) Fall: (5) Thoracic compression fracture: (6) Essential hypertension: (7) Psoriatic arthritis: I think the leading diagnosis is a seizure disorder. She does have a prev ious history of of a seizure approximately 15 years ago. Neurology is in the process of working her up. In regard to her elevated troponin, I think that the events are unlikely to be due to ischemic heart disease. Her EKG does show some T wave inversions in the anterior leads that might be suggestive of ischemia but are nonspecific. She also had an echocardiogram that shows normal left ventric ular function without wall motion abnormalities and no evidence of a cardiac contusion. Since she has been in the hospital, she has been in a sinus mechanism without any significant arrhythmias. At this point I would allow the neurology work-up to continue to completion. Once that is completed but prior to her discharge, I think it would be best that we perform a pharmacologic stress test with imaging. I do not believe that she will be able to exercise due to her compression fractures of her back and therefore pharmacologic stress would be best. We will follow along with you during her hospital stay. History of Present Illness Attending Physician: Michael Mark MD History of Present Illness This is a 61-year-old female with no prior history of heart disease. She has an unusual story where she was in her usual state of good health when she went to bed Tuesday night. She then awoke in the morning and felt just generalized pain but especially in her back. She noticed that she had a contusion over her right eye. She frankly does not remember anything that occurred from the time that she got into bed until she awoke the next morning. After admission she had a CT of the head that shows a small brain contusion in the area where she has bruising on her right forehead and eye. She also has multiple compressions fractures of her spine. She is very active and has a routine walking exercise program. She has had no activity related chest pain or unusual shortness of breath. No recent unusual dizziness or lightheadedness. No presyncope or syncopal episodes. The patient does have a history of a previous seizure that occurred approximately 15 years ago which was a witnessed event. She has had no further seizure activity following that episode. She is on no current seizure medication. She is treated for mild essential hypertension. No previous history of diabetes. She is a never smoke. She is on a low-dose of atorvastatin for hypercholesterolemia. No strong family history of early heart disease. Allergies Allergy/AdvReac Type Severity Reaction Status Date / Time doxycycline Allergy Intermediate Rash Unverified 06/30/21 11:00 Home Medications Medication Instructions Recorded Confirmed Type apremilast 30 mg tablet (Otezla) 30 mg PO BID 06/30/21 06/30/21 History atorvastatin 10 mg tablet 10 mg PO QAM 06/30/21 06/30/21 History hydrochlorothiazide 25 mg tablet 25 mg PO QAM 06/30/21 06/30/21 History lisinopril 30 mg tablet 30 mg PO QAM 06/30/21 06/30/21 History propranolol 40 mg tablet 20 mg PO BID PRN 06/30/21 06/30/21 History Patient History Medical History Essential hypertension Hyperlipidemia Psoriasis Psoriatic arthritis Surgical History History of benign breast biopsy History of cervical biopsy Cervical conization in 1982 for dysplasia - normal pap smears since History of tonsillectomy Social History Smoking Status: Never smoker Hx Alcohol Use: Yes Preferred Language: Montserratian Communication Ability: Effective Chemistry Teacher Required: No Beliefs That Will Affect Care: None Current Living Situation: Alone How many Children do You have: 2 Feels Safe at Home: Yes Safety Concerns: Feels Safe At This Time Assistive Devices: Glasses Review of Systems Review of Systems: Review of Systems: See HPI for pertinent positives. All other 10 point review of systems are negative. The only additional information is that as a young teenager she was tall and they thought she may have Marfan's but she had or her aorta evaluated and everything was okay. She does have a father who is 6 foot 6 inches tall without a history of Marfan's disease. Physical Exam Physical Exam: General: no acute distress and stated age Head: Contusions right eye and right forehead Eyes: conjunctiva are pink and non-injected, sclera clear Neck: supple, no adenopathy, no bruits, normal jugular venous pulse, no hepatojugular reflux Chest: normal shape and normal respiratory effort Lungs: clear to auscultation and percussion Cardiac Exam: - regular rate & rhythm, no murmurs gallops or rubs - normal S1, normal S2 Pulses: 2(+) throughout Abdomen: abdomen soft, non-tender, no abnormal masses and no hepatosplenomegaly Musculoskeletal: no gait disturbance, no joint inflammation, no deforming arthritis Extremities: no edema and no cyanosis Neuro: grossly normal exam Results & Data ([facility]) Vital Signs (Past 12 Hours) Vital Signs Temp Pulse Pulse Resp BP BP Pulse Ox 07/01/21 09:26 75 07/01/21 07:29 37.0 C 71 17 150/82 H 96 07/01/21 02:44 36.6 C 66 17 143/83 H 97 07/01/21 00:13 71 06/30/21 22:48 37.3 C 74 17 134/87 97 Laboratory Results Laboratory Results - last 24 hr 06/30/21 06/30/21 06/30/21 09:25 09:39 09:39 WBC 7.04 RBC 4.40 Hgb 14.8 POC Hgb Hct 41.1 POC Hct MCV 93.4 MCH 33.6 MCHC 36.0 RDW Std Deviation 44.7 RDW Coeff of Bernie 13.0 Plt Count 220 MPV 8.7 Immature Gran % (Auto) 0.1 Neut % (Auto) 85.4 Lymph % (Auto) 4.8 [place] % (Auto) 9.5 Eos % (Auto) 0.1 Baso % (Auto) 0.1 Neut # (Auto) 6.00 Lymph # (Auto) 0.34 L [place] # (Auto) 0.67 H Eos # (Auto) 0.01 Baso # (Auto) 0.01 Immature Gran # (Auto) 0.01 POC Sodium Sodium 127 L POC Potassium Potassium 3.0 L POC Chloride Chloride 92 L Carbon Dioxide 22 POC Total CO2 Anion Gap 13.0 H POC Anion Gap POC BUN BUN 10 Creatinine 0.79 POC Creatinine Est Cr Clr Drug Dosing 84.3 Est GFR ( Amer) 93.6 Est GFR (Non-Af Amer) 80.8 BUN/Creatinine Ratio 12.8 Glucose 130 H POC Glucose (other) Osmolality Calcium 9.5 POC Ioniz Calcium Anjum Magnesium Total Bilirubin 1.7 H AST 40 H ALT 35 Alkaline Phosphatase 87 Total Creatine Kinase Troponin I 0.239 H* Total Protein 7.9 Albumin 4.2 Globulin 3.7 Albumin/Globulin Ratio 1.1 TSH Urine Osmolality Ur Random Sodium Influ A Molecular Assay Negative Influ B Molecular Assay Negative 06/30/21 06/30/21 06/30/21 09:48 14:17 14:17 WBC RBC Hgb POC Hgb 15.6 Hct POC Hct 46 MCV MCH MCHC RDW Std Deviation RDW Coeff of Bernie Plt Count MPV Immature Gran % (Auto) Neut % (Auto) Lymph % (Auto) [place] % (Auto) Eos % (Auto) Baso % (Auto) Neut # (Auto) Lymph # (Auto) [place] # (Auto) Eos # (Auto) Baso # (Auto) Immature Gran # (Auto) POC Sodium 128 L Sodium 130 L POC Potassium 3.1 L Potassium 3.1 L POC Chloride 91 L Chloride 96 L Carbon Dioxide 27 POC Total CO2 23 L Anion Gap 7.0 POC Anion Gap 19.0 POC BUN 10 BUN 8 Creatinine 0.77 POC Creatinine 0.7 Est Cr Clr Drug Dosing 86.5 Est GFR ( Amer) 96.6 Est GFR (Non-Af Amer) 83.3 BUN/Creatinine Ratio 10.2 Glucose 112 H POC Glucose (other) 130 H Osmolality 272 L Calcium 9.4 POC Ioniz Calcium Anjum 1.14 Magnesium 2.2 Total Bilirubin AST ALT Alkaline Phosphatase Total Creatine Kinase Troponin I 0.191 H* Total Protein Albumin Globulin Albumin/Globulin Ratio TSH Urine Osmolality Ur Random Sodium Influ A Molecular Assay Influ B Molecular Assay 06/30/21 06/30/21 06/30/21 14:17 19:52 20:12 WBC RBC Hgb POC Hgb Hct POC Hct MCV MCH MCHC RDW Std Deviation RDW Coeff of Bernie Plt Count MPV Immature Gran % (Auto) Neut % (Auto) Lymph % (Auto) [place] % (Auto) Eos % (Auto) Baso % (Auto) Neut # (Auto) Lymph # (Auto) [place] # (Auto) Eos # (Auto) Baso # (Auto) Immature Gran # (Auto) POC Sodium Sodium 131 L POC Potassium Potassium 3.6 D POC Chloride Chloride 98 Carbon Dioxide 27 POC Total CO2 Anion Gap 6.0 POC Anion Gap POC BUN BUN 7 Creatinine 0.76 POC Creatinine Est Cr Clr Drug Dosing 87.6 Est GFR ( Amer) 98.1 Est GFR (Non-Af Amer) 84.7 BUN/Creatinine Ratio 8.7 L Glucose 114 H POC Glucose (other) Osmolality Calcium 9.2 POC Ioniz Calcium Anjum Magnesium Total Bilirubin AST ALT Alkaline Phosphatase Total Creatine Kinase 323 H Troponin I 0.099 H* Total Protein Albumin Globulin Albumin/Globulin Ratio TSH 0.827 Urine Osmolality 328 L Ur Random Sodium Influ A Molecular Assay Influ B Molecular Assay 06/30/21 07/01/21 20:12 01:31 WBC RBC Hgb POC Hgb Hct POC Hct MCV MCH MCHC RDW Std Deviation RDW Coeff of Bernie Plt Count MPV Immature Gran % (Auto) Neut % (Auto) Lymph % (Auto) [place] % (Auto) Eos % (Auto) Baso % (Auto) Neut # (Auto) Lymph # (Auto) [place] # (Auto) Eos # (Auto) Baso # (Auto) Immature Gran # (Auto) POC Sodium Sodium 133 L POC Potassium Potassium 3.9 POC Chloride Chloride 101 Carbon Dioxide 27 POC Total CO2 Anion Gap 5.0 POC Anion Gap POC BUN BUN 7 Creatinine 0.79 POC Creatinine Est Cr Clr Drug Dosing 84.0 Est GFR ( Amer) 93.6 Est GFR (Non-Af Amer) 80.8 BUN/Creatinine Ratio 8.7 L Glucose 98 POC Glucose (other) Osmolality Calcium 9.1 POC Ioniz Calcium Anjum Magnesium Total Bilirubin AST ALT Alkaline Phosphatase Total Creatine Kinase Troponin I Total Protein Albumin Globulin Albumin/Globulin Ratio TSH Urine Osmolality Ur Random Sodium 52 Influ A Molecular Assay Influ B Molecular Assay Medications Administered Current Inpatient Medications Acetaminophen (Acetaminophen 325 Mg Tab) 650 mg PO Q4H PRN PRN Reason: Pain or Fever Stop: 07/30/21 20:43 Apremilast (Apremilast) 1 ea PO BID ANU Stop: 07/30/21 21:59 Last Admin: 07/01/21 08:01 Dose: 1 ea Documented by: Atorvastatin Calcium (Atorvastatin 10 Mg Tab) 10 mg PO QAM ANU Stop: 07/31/21 08:59 Last Admin: 07/01/21 08:00 Dose: 10 mg Documented by: Potassium Chloride/Sodium Chloride (Normal Saline W/20 Meq Kcl) 20 meq in 1,000 mls @ 75 mls/hr IV .[id number] [facility] Stop: 07/01/21 23:04 Last Admin: 07/01/21 03:06 Dose: Not Given Documented by: Lisinopril (Lisinopril 10 Mg Tab) 30 mg PO QAM ANU Stop: 07/31/21 08:59 Last Admin: 07/01/21 08:00 Dose: 30 mg Documented by: Morphine Sulfate (Morphine Sulfate 4 Mg/Ml 1 Ml Carp\Vial) 3 mg IV Q4H PRN PRN Reason: moderate to severe pain Stop: 07/14/21 20:43 Last Admin: 06/30/21 21:45 Dose: 3 mg Documented by: (1) Thoracic compression fracture Encounter type: initial encounter Thoracic vertebra fracture level: unspecified thoracic vertebra Qualified Code(s): S22.000A - Wedge compression fracture of unspecified thoracic vertebra, initial encounter for closed fracture (2) Fall Encounter type: initial encounter Qualified Code(s): W19.XXXA - Unspecified fall, initial encounter
[2021-07-01] MEDS: levETIRAcetam 500 MG TAB PO SCH ×2 (10:56→20:35)
[2021-07-01] MEDS ORDERED: GADOBUTROL 65ML VIAL IV ONE (12:23)
--- NOTE | 2021-07-01 14:09 | Electrocardiogram Report ---
Test Reason : Blood Pressure : / mmHG Vent. Rate : 069 BPM Atrial Rate : 069 BPM P-R Int : 142 ms QRS Dur : 080 ms QT Int : 408 ms P-R-T Axes : -15 002 000 degrees QTc Int : 437 ms Poor data quality, interpretation may be adversely affected Normal sinus rhythm Nonspecific T wave abnormality Abnormal ECG When compared with ECG of 30-JUN-2021 09:30, Inverted T waves have replaced nonspecific T wave abnormality in Anterior leads Confirmed by Eder Braga ([id number]) on 07/01/2021 2:08:43 PM Referred By: REFERRED SELF Confirmed By:Valentino Braga
--- NOTE | 2021-07-01 14:58 | Electroencephalogram ---
EEG Procedure Note Date of Service July 01, 2021 Start / End Times Start Time: 10:35 End Time: 10:55 Referring Physician Jose Conway, DO History A 61-year-old woman with suspected general tonic-clonic seizure. EEG performed for evaluation epileptiform activity. Home Medication List Medication Instructions Recorded Confirmed Type apremilast 30 mg tablet (Otezla) 30 mg PO BID 06/30/21 06/30/21 History atorvastatin 10 mg tablet 10 mg PO QAM 06/30/21 06/30/21 History hydrochlorothiazide 25 mg tablet 25 mg PO QAM 06/30/21 06/30/21 History lisinopril 30 mg tablet 30 mg PO QAM 06/30/21 06/30/21 History propranolol 40 mg tablet 20 mg PO BID PRN 06/30/21 06/30/21 History Inpatient Medication List Apremilast (Apremilast) 1 ea PO BID [facility] Stop: 07/30/21 21:59 Last Admin: 07/01/21 08:01 Dose: 1 ea Documented by: [id number] Admin: 06/30/21 21:50 Dose: 1 ea Documented by: [id number] Atorvastatin Calcium (Atorvastatin 10 Mg Tab) 10 mg PO QAM ANU Stop: 07/31/21 08:59 Last Admin: 07/01/21 08:00 Dose: 10 mg Documented by: [id number] Potassium Chloride/Sodium Chloride (Normal Saline W/20 Meq Kcl) 20 meq in 1,000 mls @ 75 mls/hr IV .[id number] ANU Stop: 07/01/21 23:04 Last Admin: 07/01/21 10:56 Dose: 75 mls/hr Documented by: [id number] Infusion: 07/01/21 10:56 Dose: 100 mls/hr Documented by: [id number] Admin: 07/01/21 03:06 Dose: Not Given Documented by: [id number] Admin: 07/01/21 01:52 Dose: 100 mls/hr Documented by: [id number] Infusion: 07/01/21 01:51 Dose: 100 mls/hr Documented by: [id number] Admin: 06/30/21 15:06 Dose: 100 mls/hr Documented by: [id number] Levetiracetam (Levetiracetam 500 Mg Tab) 500 mg PO BID ANU Stop: 07/31/21 09:59 Last Admin: 07/01/21 10:56 Dose: 500 mg Documented by: [id number] Lisinopril (Lisinopril 10 Mg Tab) 30 mg PO QAM [facility] Stop: 07/31/21 08:59 Last Admin: 07/01/21 08:00 Dose: 30 mg Documented by: [id number] Morphine Sulfate (Morphine Sulfate 4 Mg/Ml 1 Ml Carp\Vial) 3 mg IV Q4H PRN PRN Reason: moderate to severe pain Stop: 07/14/21 20:43 Last Admin: 06/30/21 21:45 Dose: 3 mg Documented by: [id number] Discontinued Medications Gadobutrol (Gadobutrol 65ml Vial) 8 ml IV ONCE ONE Stop: 07/01/21 12:24 Last Admin: 07/01/21 12:24 Dose: 8 ml Documented by: [id number] Sodium Chloride (Nss 1000ml) 1,000 mls @ 999 mls/hr IV .[id number] ANU Stop: 06/30/21 10:15 Last Infusion: 06/30/21 11:07 Dose: 999 mls/hr Documented by: [id number] Admin: 06/30/21 09:50 Dose: 999 mls/hr Documented by: [id number] Ioversol (Optiray 320 125ml) 120 ml IV ONCE ONE Stop: 06/30/21 10:15 Last Admin: 06/30/21 10:14 Dose: 120 ml Documented by: [id number] Morphine Sulfate (Morphine Sulfate 2 Mg/Ml Carp) 2 mg IV NOW STA Stop: 06/30/21 09:15 Last Admin: 06/30/21 09:50 Dose: 2 mg Documented by: [id number] Ondansetron HCl (Ondansetron Inj 2 Mg/Ml 2 Ml Vial) 4 mg IV NOW STA Stop: 06/30/21 09:15 Last Admin: 06/30/21 09:46 Dose: 4 mg Documented by: [id number] Potassium Chloride (Potassium Chloride Crtab 20 Meq Tabcr) 40 meq PO NOW STA Stop: 06/30/21 13:39 Last Admin: 06/30/21 15:06 Dose: 40 meq Documented by: [id number] Description This is a 21 electrode EEG with a single channel dedicated to limited EKG. The electrodes were placed in accordance with the International 10-20 system. REPORT: At the onset of the EEG the patient is awake. The background is symmetric. There is a normal anterior to posterior gradient. The posterior dominant rhythm is 10 Hz. Photic stimulation does not induce any abnormalities. Drowsiness is characterized by increased theta activity, reduced blink rate, and decreased myogenic artifact. No stage 2 sleep transients are seen. Interpretation This is a normal awake and drowsy routine EEG. There is no evidence of epileptiform activity.
--- NOTE | 2021-07-01 15:01 | Magnetic Resonance Report ---
MR brain wo/w con CLINICAL HISTORY: Possible seizure. Fall with trauma to the face. Patient does not remember falling. COMPARISON STUDY: CT brain from 06/30/2021 and previous MR brain from 03/27/2008 TECHNIQUE: Multiplanar multisequence images of the brain were performed before and after Gadavist, 8 mL of IV contrast. Diffusion weighted imaging and ADC mapping was also performed. FINDINGS: Extra-axial space: There is no evidence for a subdural hematoma, There are no extra-axial fluid randa ections. Ventricles and cisterns: The ventricles are normal in size and configuration. There is no evidence f or midline shift or mass effect. Parenchyma: On noncontrast images, there is no evidence for an acute hemorrhage or infarct. No acute diffusion abnormalities are noted on diffusion weighted imaging or ADC mapping. There is normal crowe -white differentiation. There is mild cerebral cortical atrophy present. The sulci and gyri appear no rmal without effacement. The midline structures are unremarkable. The posterior fossa structures appe ar normal. On postcontrast images, there is no evidence for enhancing mass lesion. Osseous structures: There is very minimal mucosal thickening of the left maxillary antrum. The remai dc paranasal sinuses are clear. The mastoid air cells are well aerated. Soft tissues: No focal soft tissue abnormalities are identified. IMPRESSION: No acute intracranial abnormalities. Mild cerebral cortical atrophy. ACT 112: Negative or not required by law. Electronically signed by: Ryan Dasilva M.D. 07/01/2021 3:00 PM
--- NOTE | 2021-07-01 15:19 | CT Scan Report ---
CT SCAN OF THE THORACIC SPINE WITHOUT IV CONTRAST CLINICAL HISTORY: Thoracic spinal fractures. COMPARISON STUDY: Chest CT dated 06/30/2021. TECHNIQUE: CT scan of the thoracic spine is performed from the lower cervical spine to the upper lumb ar spine. Images are reviewed in the axial, sagittal, and coronal planes. IV contrast was not adminis tered for this examination. A dose lowering technique was utilized adhering to the principles of LE Mantilla. CT DOSE: 901.41 mGycm FINDINGS: The skeletal structures are osteopenic. There are age-indeterminate superior endplate compr ession fractures of T3, T4, T5, and T9, which are unchanged from yesterday. There is also mild anteri or wedging of T12 and L1. Vertebral body height is otherwise maintained throughout the thoracic spine . Alignment is preserved. Small anterior osteophytes are seen throughout. The transverse and spinous processes appear intact. No lytic or blastic lesion is seen. The disc spaces are grossly maintained. A posterior disc osteophyte complex is noted at T11-T12. There is no CT evidence of high-grade centra l canal stenosis. The visualized posterior ribs appear intact. The imaged lung parenchyma is clear, n oting bibasilar atelectasis. The paraspinous soft tissues are normal as visualized. IMPRESSION: There are mild and age-indeterminate superior endplate compression deformities of T3, T4, T5, and T9 which are unchanged from yesterday. Correlate for point tenderness. ACT 112: Negative or not required by law. Dictated: 07/01/2021 2:55 PM Transcribed: 07/01/2021 3:04 PM Clau [id number] [email or web address] Electronically signed by: Terell Ventura M.D. 07/01/2021 3:17 PM
--- NOTE | 2021-07-01 20:24 | Hospitalist Progress Note ---
Date of Service July 01, 2021 Assessment & Plan (1) Elevated troponin: Plan: Loss of consciousness likely secondary to breakthrough seizure Fall resulting in right forehead hematoma, laceration H/O seizure disorder -MRI Brain:No acute intracranial abnormalities. Mild cerebral cortical atrophy. -Cervical CT:No acute cervical spine fracture or subluxation -EEG:This is a normal awake and drowsy routine EEG. There is no evidence of epileptiform activity. Started on Keppra 500 mg. Needs follow-up with neurology upon discharge No driving for 6 months Fall precautions Elevated troponin Abnormal EKG T wave inversions in the anterior leads Echo reviewed Needs stress test prior to discharge Cardiology on board (2) Thoracic compression fracture: Plan: -CT:There are mild and age-indeterminate superior endplate compression deformities of T3, T4, T5, and T9 which are unchanged from yesterday. Correlate for point tenderness. - Pain control - Consulted ortho spine (3) Fall: (4) Hyponatremia: Plan: Hyponatremia Likely secondary to HCTZ Sodium levels improved from 30-1 33 Monitor hold HCTZ for now next (5) Hypokalemia: Plan: Replace electrolytes as needed Monitor (6) Hyperlipidemia: Plan: - Continue statin (7) Essential hypertension: Plan: - HOLD HCTZ - Continue Lisinopril and monitor (8) Psoriatic arthritis: Plan: - Continue Otezla (9) Psoriasis: Plan: Code Status: Full code DVT Px: SCDs for now Admission and Anticipated Discharge Date Admission Date: June 30, 2021 Subjective Patient is seen and examined at bedside Denies any significant periorbital pain States having back pain which is controlled Denies any chest pain, shortness of breath, dizziness, nausea, abdominal pain Offers no other complaints Review of Systems Review of Systems: All systems reviewed & are unremarkable except as noted in Subjective Physical Exam Physical Exam: Physical Exam: Vitals signs as noted above General Appearance:Moderately built and nourished, no apparent distress Head: normocephalic, Atraumatic Eyes: normal inspection, EOMI, R periorbital ecchymosis Neck: supple, Trachea midline Respiratory/Chest: Normal breath sounds, CTA Cardiovascular: S1, S2, No murmur Abdomen/GI:Soft, Non tender, Bowel sounds present Extremities/Musculoskeletal:normal inspection, no edema Neurologic/Psych:AAOX3, grossly no focal neurological deficits Skin: normal color, warm Results & Data Results & Data ([facility]) Vital Signs (Past 12 Hours) Vital Signs Temp Pulse Pulse Resp BP BP Pulse Ox 07/01/21 17:02 36.6 C 77 18 139/83 98 07/01/21 15:06 84 07/01/21 11:13 36.6 C 75 18 157/85 H 97 07/01/21 09:26 75 Laboratory Results BMP 06/30/21 07/01/21 19:52 01:31 Sodium 131 L 133 L Potassium 3.6 D 3.9 Chloride 98 101 Carbon Dioxide 27 27 BUN 7 7 Creatinine 0.76 0.79 Glucose 114 H 98 Calcium 9.2 9.1 Cardiac Enzymes 06/30/21 Range/Units 19:52 Troponin I 0.099 H* (0-0.045) ng/ml (1) Thoracic compression fracture Encounter type: initial encounter Thoracic vertebra fracture level: unspecified thoracic vertebra Qualified Code(s): S22.000A - Wedge compression fracture of unspecified thoracic vertebra, initial encounter for closed fracture (2) Fall Encounter type: initial encounter Qualified Code(s): W19.XXXA - Unspecified fall, initial encounter
--- NOTE | 2021-07-01 21:39 | Neurology Progress Note ---
Date of Service July 01, 2021 Assessment & Plan (1) Seizure: Plan: A 61 year old woman admitted with presumed GTC seizure during her sleep supported by her mildly elevated CK, contusion to the head, amnesia, and abrasion to her tongue. This is her second seizure as she notes having one a few years ago. Routine EEG is normal. MRI brain w/wo acute inctranial abnormality. Recommend Keppra 500 mg BID and continue. Discussed in [place] she is not allowed to drive for 6 months. Will need to follow up with Neurlology as outpatient in 2-3 months. Please call me with any further questions or concerns. Admission and Anticipated Discharge Date Admission Date: June 30, 2021 Subjective Patient was seen examined. Reports feeling better. Friend brought her snack and supplies. Denies any new complaints or concerns. Started on Keppra. EEG and MRI brain completed. Physical Exam Physical Exam: Patient is awake and alert. Speech is clear. Following commands. Right eye echymosis. Abrasion on left side of tongue. No tremor. No focal weakness. Sensation is intact. Results & Data ([facility]) Vital Signs (Past 12 Hours) Vital Signs Temp Pulse Pulse Resp BP BP Pulse Ox 07/01/21 19:20 36.9 C 77 20 146/88 H 98 07/01/21 17:02 36.6 C 77 18 139/83 98 07/01/21 15:06 84 07/01/21 11:13 36.6 C 75 18 157/85 H 97 Diagnostic Findings ROutine EEG is Normal MRI brain w/wo showed no Acute intcranial abnormality.
[2021-07-02 07:39] LABS: Hematocrit (blood only) 34.6 % (37-47); Hemoglobin 11.8 g/dL (12.0-16.0); Mean Corpuscular Hemoglobin 33.1 pg (25-34); Mean Corpuscular Hgb Conc 34.1 g/dL (32-36); Mean Corpuscular Volume 97.2 fL (80-100); Mean Platelet Volume 8.9 fL (7.4-10.4); Platelet Count 171 K/uL (130-400); RDW Coefficient of Variation 13.1 % (11.5-14.5); RDW Standard Deviation 46.7 fL (36.4-46.3); Red Blood Count 3.56 M/uL (4.2-5.4); White Blood Count 3.78 K/uL (4.8-10.8)
[2021-07-02 08:05] LABS: BUN Creatinine Ratio 9.5 (10-20); Creatinine Clr Calc Pharmacy 90.9 ml/min; Est GFR (Non-African American) 88.9 ml/min
[2021-07-02] MEDS: lisinopril 10 MG TAB PO SCH (08:25)
[2021-07-02] MEDS: ATORVASTATIN 10 MG TAB PO SCH (08:26)
[2021-07-02] MEDS: levETIRAcetam 500 MG TAB PO SCH (08:26)
[2021-07-02] MEDS: APREMILAST PO SCH (08:26)
--- NOTE | 2021-07-02 12:01 | Cardiology Progress Note ---
Date of Service July 02, 2021 Assessment & Plan (1) Hypokalemia: (2) Hyponatremia: (3) Elevated troponin: (4) Fall: (5) Thoracic compression fracture: (6) Essential hypertension: (7) Psoriatic arthritis: Plan: I agree with neurology that the likely diagnosis here is a seizure disorder. You have elevated troponins and a borderline EKG I think it is best we exclude significant ischemic heart disease. She has had a stable heart rhythm since admission after being cognizant of the possibility of ischemic heart disease with an arrhythmia that may have resulted in her loss of consciousness and traumatic injuries. I ordered a dobutamine stress echocardiogram to be completed today. If that study is unremarkable then I believe she can be discharged without further cardiac testing. Admission and Anticipated Discharge Date Admission Date: June 30, 2021 Subjective Patient had an uneventful night. Rhythm has been stable on telemetry. Review of Systems Review of Systems: Review of Systems: See HPI for pertinent positives. All other 10 point review of systems are negative. The only additional information is that as a young teenager she was tall and they thought she may have Marfan's but she had or her aorta evaluated and everything was okay. She does have a father who is 6 foot 6 inches tall without a history of Marfan's disease. Physical Exam Physical Exam: General: no acute distress and stated age Head: Contusions right eye and right forehead Eyes: conjunctiva are pink and non-injected, sclera clear Neck: supple, no adenopathy, no bruits, normal jugular venous pulse, no hepatojugular reflux Chest: normal shape and normal respiratory effort Lungs: clear to auscultation and percussion Cardiac Exam: - regular rate & rhythm, no murmurs gallops or rubs - normal S1, normal S2 Pulses: 2(+) throughout Abdomen: abdomen soft, non-tender, no abnormal masses and no hepatosplenomegaly Musculoskeletal: no gait disturbance, no joint inflammation, no deforming arthritis Extremities: no edema and no cyanosis Neuro: grossly normal exam Results & Data ([facility]) Vital Signs (Past 12 Hours) Vital Signs Temp Pulse Resp BP Pulse Ox 07/02/21 07:28 37 C 60 16 157/95 H 97 Laboratory Results Laboratory Results - last 24 hr 07/02/21 07/02/21 07:02 07:02 WBC 3.78 L RBC 3.56 L Hgb 11.8 L D Hct 34.6 L MCV 97.2 MCH 33.1 MCHC 34.1 RDW Std Deviation 46.7 H RDW Coeff of Bernie 13.1 Plt Count 171 MPV 8.9 Sodium 138 Potassium 4.0 Chloride 106 Carbon Dioxide 24 Anion Gap 8.0 BUN 7 Creatinine 0.73 Est Cr Clr Drug Dosing 90.9 Est GFR ( Amer) 103.0 Est GFR (Non-Af Amer) 88.9 BUN/Creatinine Ratio 9.5 L Glucose 101 H Calcium 9.0 Medications Administered Current Inpatient Medications Acetaminophen (Acetaminophen 325 Mg Tab) 650 mg PO Q4H PRN PRN Reason: Pain or Fever Stop: 07/30/21 20:43 Last Admin: 07/02/21 08:31 Dose: 650 mg Documented by: Apremilast (Apremilast) 1 ea PO BID [facility] Stop: 07/30/21 21:59 Last Admin: 07/02/21 08:26 Dose: 1 ea Documented by: Atorvastatin Calcium (Atorvastatin 10 Mg Tab) 10 mg PO QAM [facility] Stop: 07/31/21 08:59 Last Admin: 07/02/21 08:26 Dose: 10 mg Documented by: Levetiracetam (Levetiracetam 500 Mg Tab) 500 mg PO BID [facility] Stop: 07/31/21 09:59 Last Admin: 07/02/21 08:26 Dose: 500 mg Documented by: Lisinopril (Lisinopril 10 Mg Tab) 30 mg PO QAM [facility] Stop: 07/31/21 08:59 Last Admin: 07/02/21 08:25 Dose: 30 mg Documented by: Morphine Sulfate (Morphine Sulfate 4 Mg/Ml 1 Ml Carp\Vial) 3 mg IV Q4H PRN PRN Reason: moderate to severe pain Stop: 07/14/21 20:43 Last Admin: 06/30/21 21:45 Dose: 3 mg Documented by: (1) Fall Encounter type: initial encounter Qualified Code(s): W19.XXXA - Unspecified fall, initial encounter (2) Thoracic compression fracture Encounter type: initial encounter Thoracic vertebra fracture level: unspecified thoracic vertebra Qualified Code(s): S22.000A - Wedge compression fracture of unspecified thoracic vertebra, initial encounter for closed fracture
[2021-07-02] MEDS ORDERED: DOBUTamine HCL 12.5 MG/ML 20 ML VIAL IV ONE (13:11)
[2021-07-02] MEDS ORDERED: ATROPINE SULFATE 0.1 MG/ML 10ML SYR IV ONE (13:11)
[2021-07-02] MEDS ORDERED: METOPROLOL TARTRATE 1 MG/ML VIAL IV ONE (13:11)
--- NOTE | 2021-07-02 13:23 | Hospitalist Progress Note ---
Date of Service July 02, 2021 Assessment & Plan (1) Elevated troponin: Plan: Seizure Loss of consciousness likely secondary to breakthrough seizure Fall resulting in right forehead hematoma, laceration H/O seizure disorder -MRI Brain:No acute intracranial abnormalities. Mild cerebral cortical atrophy. -Cervical CT:No acute cervical spine fracture or subluxation -EEG:This is a normal awake and drowsy routine EEG. There is no evidence of epileptiform activity. Continue Keppra 500 mg BID Needs follow-up with neurology upon discharge: 2-3 months No driving for 6 months Fall precautions PT/OT eval pending Elevated troponin Abnormal EKG T wave inversions in the anterior leads Echo reviewed Plan for stress test today Cardiology on board (2) Thoracic compression fracture: Plan: -CT:There are mild and age-indeterminate superior endplate compression deformities of T3, T4, T5, and T9 which are unchanged from yesterday. Correlate for point tenderness. - Pain improved - Consulted ortho spine (3) Fall: (4) Hyponatremia: Plan: Hyponatremia Likely secondary to HCTZ Sodium levels improved to 138 Monitor hold HCTZ for now next (5) Hypokalemia: Plan: Replace electrolytes as needed Monitor (6) Hyperlipidemia: Plan: - Continue statin (7) Essential hypertension: Plan: - HOLD HCTZ - Continue Lisinopril and monitor (8) Psoriatic arthritis: Plan: - Continue Otezla (9) Psoriasis: Plan: Code Status: Full code DVT Px: SCDs for now Admission and Anticipated Discharge Date Admission Date: June 30, 2021 Subjective Patient is seen and examined at bedside Back pain much improved No recurrence of seizure No new complaints Planned for stress test today Denies any chest pain, shortness of breath, dizziness, nausea, abdominal pain Review of Systems Review of Systems: All systems reviewed & are unremarkable except as noted in Subjective Physical Exam Physical Exam: Physical Exam: Vitals signs as noted above General Appearance:Moderately built and nourished, no apparent distress Head: normocephalic, Atraumatic Eyes: normal inspection, EOMI, R periorbital ecchymosis Neck: supple, Trachea midline Respiratory/Chest: Normal breath sounds, CTA Cardiovascular: S1, S2, No murmur Abdomen/GI:Soft, Non tender, Bowel sounds present Extremities/Musculoskeletal:normal inspection, no edema Neurologic/Psych:AAOX3, grossly no focal neurological deficits Skin: normal color, warm Results & Data Results & Data ([facility]) Vital Signs (Past 12 Hours) Vital Signs Temp Pulse Pulse Resp BP Pulse Ox 07/02/21 12:49 68 07/02/21 12:22 37.1 C 68 18 159/90 H 98 07/02/21 07:28 37 C 60 16 157/95 H 97 Laboratory Results Short CBC 07/02/21 Range/Units 07:02 WBC 3.78 L (4.8-10.8) K/uL Hgb 11.8 L D (12.0-16.0) g/dL Hct 34.6 L (37-47) % Plt Count 171 (130-400) K/uL BMP 07/02/21 07:02 Sodium 138 Potassium 4.0 Chloride 106 Carbon Dioxide 24 BUN 7 Creatinine 0.73 Glucose 101 H Calcium 9.0 (1) Thoracic compression fracture Encounter type: initial encounter Thoracic vertebra fracture level: unspecified thoracic vertebra Qualified Code(s): S22.000A - Wedge compression fracture of unspecified thoracic vertebra, initial encounter for closed fracture (2) Fall Encounter type: initial encounter Qualified Code(s): W19.XXXA - Unspecified fall, initial encounter
--- NOTE | 2021-07-02 14:27 | Electrocardiogram Report ---
Test Reason : Blood Pressure : / mmHG Vent. Rate : 069 BPM Atrial Rate : 069 BPM P-R Int : 148 ms QRS Dur : 076 ms QT Int : 410 ms P-R-T Axes : 054 015 014 degrees QTc Int : 439 ms Normal sinus rhythm Possible Left atrial enlargement Abnormal ECG Confirmed by Eder Braga ([id number]) on 07/02/2021 2:26:56 PM Referred By: REFERRED SELF Confirmed By:Valentino Braga
--- NOTE | 2021-07-02 15:21 | Consultation ---
Date of Consultation July 02, 2021 Assessment & Plan (1) Thoracic compression fracture: Patient is several days out from a fall now with acute to subacute multiple compression fractures in the thoracic spine based upon thoracic CT. She is point tender over this region. These are most likely acute. Nonetheless treatment is conservative. Due to the location of the fractures, bracing is not warranted. Recommend lifting no greater than 5 pounds. Ambulate ad luis. Continue with pain control upon discharge. She is orthopedically stable for discharge. Recommend follow-up in our office in 1 to 2 weeks [phone] Thank you for this consult History of Present Illness Reason for Consultation: Thoracic compression fractures Attending Physician: Michael Mark MD History of Present Illness This is a pleasant 61-year-old female that we are seen consultation regarding thoracic compression fractures. 5 days ago she went to bed and the next morning she woke up but quite uncomfortable. She had a possible seizure during this time. She has ecchymosis around both eyes. She does have pain in the periscapular region. This is controlled. No radiating symptoms. She does live alone. Allergies Allergy/AdvReac Type Severity Reaction Status Date / Time doxycycline Allergy Intermediate Rash Unverified 06/30/21 11:00 Home Medications Medication Instructions Recorded Confirmed Type apremilast 30 mg tablet (Otezla) 30 mg PO BID 06/30/21 06/30/21 History atorvastatin 10 mg tablet 10 mg PO QAM 06/30/21 06/30/21 History hydrochlorothiazide 25 mg tablet 25 mg PO QAM 06/30/21 06/30/21 History lisinopril 30 mg tablet 30 mg PO QAM 06/30/21 06/30/21 History propranolol 40 mg tablet 20 mg PO BID PRN 06/30/21 06/30/21 History Patient History Medical History Essential hypertension Hyperlipidemia Psoriasis Psoriatic arthritis Surgical History History of benign breast biopsy History of cervical biopsy Cervical conization in 1982 for dysplasia - normal pap smears since History of tonsillectomy Social History Smoking Status: Never smoker Hx Alcohol Use: Yes Preferred Language: Hebrew Communication Ability: Effective Stitcher Feeder Required: No Beliefs That Will Affect Care: None Current Living Situation: Alone How many Children do You have: 2 Feels Safe at Home: Yes Safety Concerns: Feels Safe At This Time Assistive Devices: Glasses Review of Systems Review of Systems: All systems reviewed & are unremarkable except as noted in HPI & below Physical Exam Physical Exam: Ecchymosis and edema noted around both eyes. Alert and oriented x3 No acute distress She is able to move in bed with ease for me No ecchymosis ecchymosis or lacerations around the thoracic spine. No palpable step-offs she is tender to palpation and percussion throughout the midline mid thoracic region Strength is intact bilateral lower extremities Results & Data ([facility]) Vital Signs (Past 12 Hours) Vital Signs Temp Pulse Pulse Resp BP Pulse Ox 07/02/21 12:49 68 07/02/21 12:22 37.1 C 68 18 159/90 H 98 07/02/21 07:28 37 C 60 16 157/95 H 97 Diagnostic Findings [place], [place] [phone] CT Scan Report Patient:LUCÍA WASSERMAN Admit Date:06/30/21 MR#:[id number] Address1:[address] [place] [address] Acct ID:[id number] Address2: Date:1960 [facility] [place] Zip:[place] [address] Age:61 Location:2S Sex:F Room/Bed:[facility] Att Phy:Michael Mark MD Diagnosis:BACK PAIN, ELEVATED TROPONIN Desiree Phy:Carolin Green MD Service Date:07/01/21 [facility] Phy: Interpreting Phy:Terell Ventura MDAdmit Phy:Mack Noriega MD Ordering Phy:Mellissa Orellana cc: ~ CT SCAN OF THE THORACIC SPINE WITHOUT IV CONTRAST CLINICAL HISTORY: Thoracic spinal fractures. COMPARISON STUDY: Chest CT dated 06/30/2021. TECHNIQUE: CT scan of the thoracic spine is performed from the lower cervical spine to the upper lumbar spine. Images are reviewed in the axial, sagittal, and coronal planes. IV contrast was not administered for this examination. A dose lowering technique was utilized adhering to the principles of ALARA. CT DOSE: 901.41 mGycm FINDINGS: The skeletal structures are osteopenic. There are age-indeterminate superior endplate compression fractures of T3, T4, T5, and T9, which are unchanged from yesterday. There is also mild anterior wedging of T12 and L1. Vertebral body height is otherwise maintained throughout the thoracic spine. Alignment is preserved. Small anterior osteophytes are seen throughout. The transverse and spinous processes appear intact. No lytic or blastic lesion is seen. The disc spaces are grossly maintained. A posterior disc osteophyte complex is noted at T11-T12. There is no CT evidence of high-grade central canal stenosis. The visualized posterior ribs appear intact. The imaged lung parenchyma is clear, noting bibasilar atelectasis. The paraspinous soft tissues are normal as visualized. IMPRESSION: There are mild and age-indeterminate superior endplate compression deformities of T3, T4, T5, and T9 which are unchanged from yesterday. Correlate for point tenderness. ACT 112: Negative or not required by law. Dictated: 07/01/2021 2:55 PM Transcribed: 07/01/2021 3:04 PM Clau [id number] [id number] Electronically signed by: Terell Ventura M.D. 07/01/2021 3:17 PM Dictated:07/01/21 1455 Transcribed: 07/01/21 1504 (1) Thoracic compression fracture Encounter type: initial encounter Thoracic vertebra fracture level: unspecified thoracic vertebra Qualified Code(s): S22.000A - Wedge compression fracture of unspecified thoracic vertebra, initial encounter for closed fracture
--- NOTE | 2021-07-02 15:56 | Discharge Summary ---
Date of Service July 02, 2021 Admission HPI Per Admitting Provider This is a 61 y/o female with a PMH of psoriasis with associated psoriatic arthritis, HTN, and hyperlipidemia who presents to the ED today after waking up at 2 am this morning with sharp thoracic back pain. Pt reports that yesterday she felt mildly dizzy but this is not unusual for her so she didn't think much of it. Went to bed last night feeling at baseline. Woke up around 2 am today with sharp severe pain between her shoulder blades. Does not radiate to chest, neck, or head. She came to the ED for evaluation as pain felt similar to when she had pneumonia 10 years ago although she denies fevers, chills, cough. It does feel like it's hard to take a deep breath and deep breathing makes the pain worse. She denies chest pain or heaviness, palpitations, wheezing. She does not have any recollection of anything happening between when she went to bed and when she woke up at 2 am, but she has a new bruise/cut on her right forehead and imaging in the ED shows acute to subacute thoracic compression fractures. She does have a hx of COVID about a year ago and has since struggled with long COVID symptoms, specifically fatigue/lack of stamina and brain fog. Before COVID, she was able to walk 4 miles per day but currently she can only make it 20 minutes of walking before she has to rest. The inactivity has resulted in weight gain. She was also vaccinated for COVID with Pfizer x 3 doses. She denies prior history of back issues. Remote hx of single seizure 15-16 years ago - none since. No specific cause identified. Currently feels shaky all over but denies dizzines. Admission Exam Per Admitting Provider Physical Exam Constitutional: well developed and well nourished; no acute distress Eyes: + anicteric sclerae Neck: trachea midline Respiratory: no respiratory distress and no labored breathing Auscultation: lungs clear to auscultation bilaterally; no rales, no rhonchi and no wheezes Cardiovascular: Rate/Rhythm: regular rate and regular rhythm Heart Sounds: no gallop, no murmur and no cardiac rub Vessels: dorsalis pedis pulses present and radial pulses present Extremities: normal capillary refill; no pedal edema Gastrointestinal (Abdomen): Inspection/Auscultation: normal bowel sounds; abdomen not distended Percussion/Palpation: abdomen soft; abdomen nontender Musculoskeletal: Spine: thoracic spine normal to inspection and + thoracic spinal tenderness (mid-thoracic spine with mild tenderness); no cervical spinal tenderness Skin: right forehead with area of ecchymosis and small superficial laceration Neurologic: moves all extremities; no focal motor deficits Speech / Cognition: normal speech Cranial Nerves: tongue midline Psychiatric: Orientation: oriented x 3 Affect: + anxious affect Insight: good insight Principal Diagnosis Seizure Fall Thoracic compression fracture Hyponatremia Discharge Data Allergies Allergy/AdvReac Type Severity Reaction Status Date / Time doxycycline Allergy Intermediate Rash Unverified 06/30/21 11:00 Consultations 06/30/21 11:35 ED Decision to Admit Stat 06/30/21 13:46 Consult Neurology Routine 06/30/21 20:44 Consult Cardiology Routine Consult Orthopedic Surgery Routine Ordered Studies 06/30/21 09:14 CT angio chest PE protocol Stat 06/30/21 11:24 CT cervical spine wo con Stat CT head/brain wo con Stat 07/01/21 09:49 MR brain wo/w con Routine 07/01/21 12:29 CT thoracic spine wo con Routine Hospital Course (1) Elevated troponin: Seizure Loss of consciousness likely secondary to breakthrough seizure Fall resulting in right forehead hematoma, laceration H/O seizure disorder -MRI Brain:No acute intracranial abnormalities. Mild cerebral cortical atrophy. -Cervical CT:No acute cervical spine fracture or subluxation -EEG:This is a normal awake and drowsy routine EEG. There is no evidence of epileptiform activity. Continue Keppra 500 mg BID Needs follow-up with neurology upon discharge: 2-3 months No driving for 6 months Fall precautions PT/OT ADL independent Elevated troponin Abnormal EKG T wave inversions in the anterior leads Echo reviewed Stress test negative for ischemia Appreciate cardiology input. (2) Thoracic compression fracture: -CT:There are mild and age-indeterminate superior endplate compression deformities of T3, T4, T5, and T9 which are unchanged from yesterday. Correlate for point tenderness. - Pain improved -Appreciate orthopedics surgery input Conservative management Needs follow-up with orthopedic surgery upon discharge (3) Fall: (4) Hyponatremia: Hyponatremia Likely secondary to HCTZ Sodium levels improved to 138 Monitor HCTZ discontinued (5) Hypokalemia: Replace electrolytes as needed Monitor (6) Hyperlipidemia: - Continue statin (7) Essential hypertension: - HOLD HCTZ - Continue Lisinopril and monitor Lisinopril dose increased to 40 mg daily (8) Psoriatic arthritis: - Continue Otezla (9) Psoriasis: Code Status: Full code DVT Px: SCDs for now Total Time Total Time Spent Total Time Spent (In Minutes): 45 minutes Discharge Plan Discharge Items Patient Disposition: Home - Self-Care Reason For Visit: BACK PAIN, ELEVATED TROPONIN Discharge Diagnosis: Seizure Fall Thoracic compression fracture Hyponatremia Activity: Per Instructions section Lifting Comment: Recommend lifting no greater than 5 pounds. Driving/Machine Use: Driving not permitted for 6 months as per your neurologist. Non-emergency contact: Primary Care Provider, Surgeon and Neurologist Call non-emergency contact if: you have any medication questions, your symptoms worsen, your pain is concerning for you and you have a fever Follow-up/Referrals: Elana Mcnair DO [Outside Practitioners] - (Date & Time 07/09/2021 11:00 AM Provider Elana Mcnair DO [facility] ) Diet: Heart Healthy Addtl Attending Provider Instructions: Follow-up with your primary care physician Dr. Mcnair on 07/09/2021 11:00 AM Follow-up with your orthopedic surgeon Dr. Cagle in 1 to 2 weeks (please call [phone]) for appointment Follow-up with your neurologist Dr. Conway in 2 months --- Your lisinopril is increased to 40 mg daily for better control of blood pressure. --- Your hydrochlorothiazide is discontinued secondary to low sodium levels. --- Discuss with your physician for further adjustment of your high blood pressure medications. -----No driving is permitted until cleared by your neurologist. Neurology recommends no driving for 6 months from now. Seek immediate medical attention if your symptoms reoccur or worsen Please take all medications as instructed on discharge list below. Please call if you have any questions or problems. You can reach a [facility] hospitalist on duty at [facility] 24 hours a day by calling [phone] Pending Studies at Discharge: No Stand-Alone Forms: My [facility], Smoking Cessation Medications and DC Order Prescriptions: New levetiracetam [Keppra] 500 mg Tablet 500 mg PO BID Qty: 60 RF: 1 lisinopril 40 mg tablet 40 mg PO DAILY Qty: 30 RF: 1 Continued atorvastatin 10 mg tablet 10 mg PO QAM RF: 0 Otezla 30 mg tablet 30 mg PO BID RF: 0 propranolol 40 mg tablet 20 mg PO BID PRN (Reason: Other) RF: 0 Discontinued lisinopril 30 mg tablet 30 mg PO QAM RF: 0 hydrochlorothiazide 25 mg tablet 25 mg PO QAM RF: 0 Discharge Orders: Discharge Order (Routine); Ordered 07/02/21 Ordered By: Michael Mark Admission Data Admit Date/Time: 06/30/21 12:28 Attending Provider: Michael Mark Admit Provider: Mack Noriega Primary Care Provider: Carolin Green Other Providers: Mack Noriega ; Seng Hooker ; Jay Cagle Benjamin B.
== END 2021-07-02 18:33 | disposition home or self-care (01) ==
LOC: ED 08:51 → SUATTDRO 12:28 → EDINP 12:28 → INTOOBSV 12:28 → 2S 20:22
DX: E87.1 Hypo-osmolality and hyponatremia; S00.83XA Contusion of other part of head, initial encounter; S22.030A Wedge compression fracture of third thoracic vertebra, initial encounter for closed fracture; W19.XXXA Unspecified fall, initial encounter; E78.5 Hyperlipidemia, unspecified; S22.040A Wedge compression fracture of fourth thoracic vertebra, initial encounter for closed fracture; Z88.1 Allergy status to other antibiotic agents; S22.050A Wedge compression fracture of T5-T6 vertebra, initial encounter for closed fracture; L40.50 Arthropathic psoriasis, unspecified; E87.6 Hypokalemia; R56.9 Unspecified convulsions; I10 Essential (primary) hypertension; R79.89 Other specified abnormal findings of blood chemistry; S22.070A Wedge compression fracture of T9-T10 vertebra, initial encounter for closed fracture; R94.31 Abnormal electrocardiogram [ECG] [EKG]; Z79.899 Other long term (current) drug therapy; Z86.16 Personal history of COVID-19